=== PATIENT | male | born 1985 | race Caucasian/White ===

== ENCOUNTER 2016-07-19 00:17 | Emergency (ER) | payer SELFPAY ==
[2016-07-19 01:23] VITALS: BP 127/90
== END 2016-07-19 01:23 | disposition other institution (70) ==
LOC: ED 00:17
DX: S60.222A Contusion of left hand, initial encounter (principal); V89.2XXA Person injured in unspecified motor-vehicle accident, traffic, initial encounter; Y93.89 Activity, other specified; Y99.8 Other external cause status; Y92.89 Other specified places as the place of occurrence of the external cause

== ENCOUNTER 2016-07-19 00:17 | Emergency (ER) | payer OTHER | END 2016-07-19 01:23 | disposition other institution (70) | LOC: ED 00:17 | DX: Z02.89 Encounter for other administrative examinations (principal); S60.222A Contusion of left hand, initial encounter; V89.2XXA Person injured in unspecified motor-vehicle accident, traffic, initial encounter; Y93.89 Activity, other specified; Y99.8 Other external cause status; Y92.89 Other specified places as the place of occurrence of the external cause ==

== ENCOUNTER 2016-10-26 07:25 | Emergency (ER) | payer OTHER ==
[2016-10-26 09:35] LABS: CALCIUM 8.4 mg/dL (8.5-10.1); CARBON DIOXIDE 28.4 mmol/L (21-32); CHLORIDE SERUM 100 mmol/L (98-107); CREATININE SERUM 1.1 mg/dL (0.7-1.3); GFR1 > 60 mL/min; GLUCOSE SERUM 100 mg/dL (74-106); POTASSIUM SERUM 3.5 mmol/L (3.5-5.1); SODIUM SERUM 135 mmol/L (136-145)
[2016-10-26 09:40] LABS: ALBUMIN 3.6 g/dL (3.4-5.0); ALKALINE PHOSPHATASE 70 U/L (46-116); ALT/SGPT 23 U/L (16-63); AST/SGOT 22 U/L (15-37); BILIRUBIN TOTAL 0.55 mg/dL (0.20-1.00); LIPASE 114 IU/L (73-393); TOTAL PROTEIN, SERUM 7.5 g/dL (6.4-8.2)
[2016-10-26 09:53] LABS: BASOPHIL % 0.2 % (0-2); PLATELET COUNT 188 x10^3mcL (130-400); RED CELL DISTRIBUTION WIDTH 13.2 % (11.5-14.5)
[2016-10-26 12:39] VITALS: BP 124/74
[2016-10-26 13:30] LABS: UA SPECIFIC GRAVITY 1.025 (1.005-1.035); microscopic required? YES; urine erythrocyte NEGATIVE (NEGATIVE)
== END 2016-10-26 14:37 | disposition home or self-care (01) ==
LOC: ED 07:25
PROVIDERS: Emergency Medicine
DX: K52.9 Noninfective gastroenteritis and colitis, unspecified (principal)
CPT/HCPCS: 87046; 87046-59; J1956; J7030